=== PATIENT | male | born 1990 | race Caucasian/White ===

== ENCOUNTER 2016-08-20 19:16 | Emergency (ER) | payer OTHER ==
[~2016-08-20] VITALS: Ht 170.2 cm; Wt 75.0 kg
[~2016-08-20 19:16] MED LIST: ALPR1TAB2 PO
[2016-08-20 19:19] VITALS: BP 136/82; PULSE 83; RESP 16; O2SAT 99
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
[2016-08-20] MEDS ORDERED: HYDROcodone-APAP 5-325 mg Tablet PO ONE (19:55)
[2016-08-20] MEDS ORDERED: HYDR-4003 PO (20:00)
[2016-08-20] MEDS ORDERED: SILV400C TP (20:00)
[2016-08-20] MEDS ORDERED: IBUP-1827 PO (20:01)
[2016-08-20 20:54] VITALS: BP 155/94; PULSE 73; RESP 18; O2SAT 100
== END 2016-08-20 20:55 | disposition home or self-care (01) ==
LOC: SED 19:16
DX: T24.211A Burn of second degree of right thigh, initial encounter (principal); T23.271A Burn of second degree of right wrist, initial encounter; T31.0 Burns involving less than 10% of body surface; X04.XXXA Exposure to ignition of highly flammable material, initial encounter; Y93.89 Activity, other specified; Y92.89 Other specified places as the place of occurrence of the external cause; Y99.8 Other external cause status; F17.200 Nicotine dependence, unspecified, uncomplicated